=== PATIENT | female | born 1985 | race African-American/Black ===

== ENCOUNTER 2017-06-27 18:00 | Emergency (ER) | payer OTHER ==
[~2017-06-27] VITALS: Ht 162.6 cm; Wt 76.1 kg
[~2017-06-27 18:00] MED LIST: ADVIL,NUPRIN,M200 MG PO; ANTIVERT25 MG PO; FLEXERIL10 MG PO; MICROGESTIN FE1 EAC1; NOHOMEMEDS; ULTRAM50 MG PO; ZANTAC150 MG PO; ZOFRAN4 MG PO
[2017-06-27 18:19] VITALS: BP 141/76
[2017-06-27 19:33] LABS: CHLORIDE 106 mEq/L (99-109); POTASSIUM 3.7 mEq/L (3.7-5.4); SODIUM 138 mEq/L (136-147)
[2017-06-27 19:35] LABS: GLUCOSE 84 mg/dL (70-99)
[2017-06-27 19:36] LABS: ANION GAP 12 MEQ/L (2-14)
[2017-06-27 19:37] LABS: TOTAL BILIRUBIN 0.2 mg/dL (0.0-1.0)
[2017-06-27 19:38] LABS: ALKALINE PHOSPHATASE 106 IU/L (3-129)
[2017-06-27 19:39] LABS: GFR ESTIMATE (CALCULATED) > 59 mL/min/
[2017-06-27 19:40] LABS: UREA NITROGEN (BUN) 6 mg/dL (9-23)
[2017-06-27 19:41] LABS: QUANTITATIVE HCG < 4.0 MIU/ML
[2017-06-27 20:04] LABS: HEMATOCRIT 35.7 % (36.0-46.0); MCH 24.5 PG (29.0-34.0); MCHC 29.7 G/DL (30.0-36.0); MCV 82.6 FL (83-99); PLATELET COUNT 362 K/uL (156-360); RBC DIS.WIDTH-CV 17.3 % (11.8-14.6); RED BLOOD COUNT 4.32 M/uL (3.80-5.20); WHITE BLOOD COUNT 6.7 K/uL (4.1-10.2)
[2017-06-27 20:41] LABS: ADD MIUA? YES; BILIRUBIN NEGATIVE; BLOOD NEGATIVE; COLOR YELLOW ((YELLOW)); GLUCOSE (STRIP) NEGATIVE; KETONES NEGATIVE; LEUKOCYTES SMALL; NITRITE NEGATIVE; PROTEIN (STRIP) 30; SPECIFIC GRAVITY 1.023 (1.000-1.030)
[2017-06-27 20:46] LABS: BACTERIA RARE /HPF; EPITHELIAL CELLS 1+ /HPF; MUCUS TRACE /LPF; UCUL ADDED? NO; WHITE BLOOD CELLS 0-5 /HPF (0-5)
[2017-06-27] MEDS ORDERED: MOTRIN800 MG PO (20:55)
== END 2017-06-27 21:14 | disposition home or self-care (01) ==
LOC: EME 18:00 → RME 18:00
DX: R10.2 Pelvic and perineal pain (principal); D64.9 Anemia, unspecified; N93.8 Other specified abnormal uterine and vaginal bleeding; Z87.19 Personal history of other diseases of the digestive system
CPT/HCPCS: 80053; 81003; 84702; 85027; 99281; 99284